=== PATIENT | male | born 1995 | race Caucasian/White ===

== ENCOUNTER → 2016-10-20 | Day surgery (SDC) | payer BC ==
[~2016-10-20] MED LIST: ALBUTEROL17 GM INH; FLOVENT HFA12 GM INH; KEFLEX PO; KLONOPIN2 MG PO; LUVOX100 MG PO; NEXIUM; SINGULAIR PO; VYVANSE20 MG PO
--- NOTE | ~2016-10-20 | OR ---
Unit #: [id number] #: [id number] Patient: LAURYN TRAVIS [id number] [address] [address] [id number] MR#: [id number] NAME: LAURYN TRAVIS ROOM: Date of Procedure: 10/20/2016 Admission Date: 10/20/2016 Surgeon: Armin Pierce Jr., M.D. : 1995 Attending Physician: Armin Pierce Jr., M.D. Primary Care Physician: Primary Care Physician No OPERATIVE REPORT INDICATIONS FOR PROCEDURE The patient is a 21-year-old white male, recently presented complaining of 2 areas of the scalp, one in the calvarium, the other to the right parietal with a small cystic lesions compatible with Pilar cyst. He is brought in this time for excision of these under local anesthesia. He does have some intermittent pain related to them. 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 ANESTHESIA 1% Xylocaine with epinephrine locally. PROCEDURE PERFORMED Complete excision of 2 lesions described above. DESCRIPTION OF PROCEDURE The patient was positioned in supine position. After being prepped and draped in routine fashion, he was anesthetized locally in the area of the 2 lesions with 1% Xylocaine with epinephrine. Elliptical incisions were made around both lesions with them being totally excised from the surrounding tissue. After they were completely removed, they were sent to pathology. Hemostasis was achieved with Bovie cautery and the skin edges on both wounds were approximated with interrupted 2-0 nylon sutures. Ointment was applied externally. Estimated blood loss minimal. The patient was taken to the discharge area with stable vital signs for discharge in satisfactory condition. Dictated by... Armin Pierce Jr., M.D. JMB/halie TD: 10/20/2016 11:34 JOB #: [id number] Unit #: [id number] #: [id number] Patient: LAURYN TRAVIS OPERATIVE REPORT Page 1 of 1 X Armin Pierce MD PROCEDURE OPERATIVE NOTE
== END | disposition home or self-care (01) ==
LOC: CSUR 07:11 → EDSTATUS 09:00
DX: L72.11 Pilar cyst (principal); D23.4 Other benign neoplasm of skin of scalp and neck; K21.9 Gastro-esophageal reflux disease without esophagitis; Z79.899 Other long term (current) drug therapy; Z98.818 Other dental procedure status; Z98.890 Other specified postprocedural states
CPT/HCPCS: 88304; 88305